=== PATIENT | male | born 1960 ===

== ENCOUNTER 2020-09-20 08:42 | Day surgery (SDC) | payer OTHER | END 2020-09-20 19:40 | disposition home or self-care (01) | LOC: CIR.AMB 08:42 | PROVIDERS: ATTEND Colon & Rectal Surgery | DX: K64.8 Other hemorrhoids (principal); K64.4 Residual hemorrhoidal skin tags; K62.4 Stenosis of anus and rectum; Z20.822 Contact with and (suspected) exposure to COVID-19 ==